=== PATIENT | male | born 1935 | race Two or more races ===

== ENCOUNTER 2017-11-29 00:11 | Inpatient (IN) | payer OTHER ==
[~2017-11-29] VITALS: Ht 170.2 cm; Wt 65.7 kg
[2017-11-29] MEDS ORDERED: DEXTROSE (50%) 50ML SYRG IV ONE ×2 (00:30→06:00)
[2017-11-29 01:22] LABS: Basophils # (auto) 0.1 uL; Monocytes # (auto) 0.8 uL; Neutrophils # (auto) 9.5 uL; Neutrophils % (auto) 81.2 % (37.0-80.0)
[2017-11-29 01:24] LABS: Eosinophils # (auto) 0.1 uL; Eosinophils % (auto) 1.2 % (0.0-7.0); Hematocrit 25.8 % (41.0-53.0); Lymphocytes # (auto) 1.2 uL; Lymphocytes % (auto) 10.1 % (10.0-50.0); Mean Corpuscular Hemoglobin 25.7 pg (28.0-32.0); Mean Corpuscular Volume 82.9 fL (80.0-100.0); Monocytes % (auto) 6.5 % (0.0-12.0); Platelet Count (auto) 391 10^3/uL (140-450); Red Blood Cells 3.11 10^6/uL (4.5-5.90); Red Cell Distribution Width 19.8 % (11.8-14.3); White Blood Cell 11.7 10^3/uL (4.4-10.8)
[2017-11-29 02:18] LABS: Alanine Aminotransferase 12 U/L (16-61); Alkaline Phosphatase 341 U/L (45-117); Anion Gap 9 (5-15); Aspartate Aminotransferase 28 U/L (15-37); BUN/Creatinine Ratio 17.8; Bilirubin, Total 0.4 mg/dL (0.2-1.0); Blood Urea Nitrogen 19 mg/dL (7-18); Calcium 8.3 mg/dL (8.5-10.1); Carbon Dioxide 28 mmol/L (21-32); Chloride 99 mmol/L (98-107); GFR African American 85 mL/min; GFR Non-African American 70 mL/min; Glucose 114 mg/dL (74-106); Potassium 3.7 mmol/L (3.5-5.1); Sodium 136 mmol/L (136-145); Total Protein 7.5 g/dL (6.4-8.2)
[2017-11-29 02:23] LABS: Urine Bacteria FEW /hpf (None Seen); Urine Blood 1+ /uL (Negative); Urine Specific Gravity 1.011 (1.001-1.035); Urine WBC 357 /hpf (0 - 3); Urine WBC Clumps PRESENT /hpf (None Seen)
[2017-11-29] MEDS ORDERED: DEXTROSE 50% SYRINGE 50 ML IV ONE (05:02)
[2017-11-29 05:03] LABS: Urine Bacteria FEW /hpf (None Seen); Urine Blood 1+ /uL (Negative); Urine Specific Gravity 1.012 (1.001-1.035); Urine WBC 58 /hpf (0 - 3); Urine WBC Clumps PRESENT /hpf (None Seen)
[2017-11-29 05:09] LABS: Alcohol, Urine < 3.0 mg/dL (0-5); Amphetamine Screen, Urine NEGATIVE (NEGATIVE); Barbiturate Scree,Urine NEGATIVE (NEGATIVE); Benzodiazephine Screen, Urine NEGATIVE (NEGATIVE); Cannabinoid Screen, Urine NEGATIVE (NEGATIVE); Cocaine Screen, Urine NEGATIVE (NEGATIVE); Opiate Scree,Urine NEGATIVE (NEGATIVE); Phencyclidine Screen, Urine NEGATIVE (NEGATIVE)
[2017-11-29] MEDS ORDERED: DEXTROSE 10% 1,000 ML IV SCH ×2 (05:30→07:30)
[2017-11-29] MEDS ORDERED: VANCOMYCIN 1GM/250ML 250 ML IV ONE (05:30)
[2017-11-29] MEDS ORDERED: LORazepam 2MG/ML-1ML VIAL IV ONE ×2 (06:00→09:30)
[2017-11-29] MEDS ORDERED: ACETAMINOPHEN 500 MG TAB PO PRN (07:15)
[2017-11-29] MEDS ORDERED: ONDANSETRON HCL 4 MG/2 ML VIAL IV PRN (07:15)
[2017-11-29] MEDS ORDERED: LORazepam 0.5 MG TAB PO PRN (07:15)
[2017-11-29] MEDS ORDERED: IOHEXOL 300 MG/ML 75ml BOTTLE IJ ONE (08:19)
[2017-11-29] MEDS ORDERED: LORazepam 2MG/ML-1ML VIAL IV PRN (09:30)
[2017-11-29] MEDS ORDERED: LISINOPRIL 5 MG TAB PO SCH (10:00)
[2017-11-29] MEDS: LORazepam 2MG/ML-1ML VIAL IV PRN (19:36)
[2017-11-30] MEDS: LORazepam 2MG/ML-1ML VIAL IV PRN ×3 (03:23→18:40)
[2017-11-30 05:30] VITALS: BP 151/71
[2017-11-30] MEDS ORDERED: LORazepam 0.5 MG TAB PO PRN (21:00)
[2017-11-30] MEDS: HYDROcodone-ACET 5/325MG TAB PO PRN (22:25)
[2017-12-01] MEDS: HYDROcodone-ACET 5/325MG TAB PO PRN ×2 (08:28→14:03)
[2017-12-01 09:50] VITALS: BP 102/41
[2017-12-01 13:14] VITALS: BP 102/41
== END 2017-12-01 15:07 | disposition hospice, home (50) | DRG 871 ==
LOC: EDBD 00:11 → ER 00:31 → TELE 00:32 → TELE-CENTR 20:19
PROVIDERS: ADMIT Nurse Practitioner Family; ATTEND Internal Medicine
DX: A41.9 Sepsis, unspecified organism (principal); G92 Toxic encephalopathy; E43 Unspecified severe protein-calorie malnutrition; N39.0 Urinary tract infection, site not specified; C78.7 Secondary malignant neoplasm of liver and intrahepatic bile duct; C78.00 Secondary malignant neoplasm of unspecified lung; I10 Essential (primary) hypertension; D63.8 Anemia in other chronic diseases classified elsewhere; E10.21 Type 1 diabetes mellitus with diabetic nephropathy; E10.621 Type 1 diabetes mellitus with foot ulcer; E10.649 Type 1 diabetes mellitus with hypoglycemia without coma; L97.513 Non-pressure chronic ulcer of other part of right foot with necrosis of muscle; Z51.5 Encounter for palliative care; Z79.4 Long term (current) use of insulin; Z68.22 Body mass index [BMI] 22.0-22.9, adult
CPT/HCPCS: 36415; 70450; 71045; 71250; 72125; 74177; 80053; 80307; 81001; 82962; 84484; 85025; 86850; 86900; 86901; 87040; 87086; 87088; 87186; 93005; 96361; 96365; 96375; 99291; J7042; Q9967